=== PATIENT | female | born 1980 | race Asian ===

== ENCOUNTER 2016-10-28 20:46 | Emergency (ER) | payer BC, OTHER ==
[2016-10-28] MEDS ORDERED: HYDROmorphONE/DILAUDID 1 MG/ML SYR IM ONE (21:08)
--- NOTE | 2016-10-28 21:10 | UCPHY ---
H & P Patient Type: Established Time Seen by Provider: 10/28/16 21:08 HPI/ROS: CHIEF COMPLAINT: Neck pain HISTORY OF PRESENT ILLNESS: The patient is a 36-year-old female who is doing hand stand pushups against a wall. She fell down onto her head and bent her neck with her chin tucked to her chest. She has pain at the lower cervical spine. No radiculopathy, no tingling or numbness, no weakness. She denies headache. Low back pain. No chest pain or shortness of breath. No concussion type symptoms. REVIEW OF SYSTEMS: Constitutional: denies: chills, fever, recent illness, recent injury EENTM: denies: blurred vision, double vision, nose congestion Respiratory: denies: cough, shortness of breath Cardiac: denies: chest pain, irregular heart rate, lightheadedness, palpitations Gastrointestinal/Abdominal: denies: abdominal pain, diarrhea, nausea, vomiting, blood streaked stools Genitourinary: denies: dysuria, frequency, hematuria, pain Musculoskeletal: See HPI Skin: denies: lesions, rash, jaundice, bruising Neurological: denies: headache, numbness, paresthesia, tingling, dizziness, weakness Hematologic/Lymphatic: denies: blood clots, easy bleeding, easy bruising Immunologic/allergic: denies: HIV/AIDS, transplant EXAM: GENERAL: Well-appearing, well-nourished and in no acute distress. HEAD: Atraumatic, normocephalic. EYES: Pupils equal round and reactive to light, extraocular movements intact, sclera anicteric, conjunctiva are normal. ENT: TMs normal, nares patent, oropharynx clear without exudates. Moist mucous membranes. NECK: Pain at C6-7 spinous process, tenderness, no swelling or deformity. LUNGS: Breath sounds clear to auscultation bilaterally and equal. No wheezes rales or rhonchi. HEART: Regular rate and rhythm without murmurs, rubs or gallops. ABDOMEN: Soft, nontender, normoactive bowel sounds. No guarding, no rebound. No masses appreciated. BACK: No CVA tenderness, no spinal tenderness, step-offs or deformities EXTREMITIES: Normal range of motion, no pitting or edema. No clubbing or cyanosis. NEUROLOGICAL: Cranial nerves II through XII grossly intact. Normal speech, normal gait. 5/5 strength, normal movement in all extremities, normal sensation PSYCH: Normal mood, normal affect. SKIN: Warm, dry, normal turgor, no visible rashes or lesions. Source: Patient, Family Exam Limitations: No limitations - Medical/Surgical History Hx Asthma: Yes Hx Chronic Respiratory Disease: No Hx Diabetes: No Hx Cardiac Disease: No Hx Renal Disease: No Hx Cirrhosis: No Hx Alcoholism: No Hx HIV/AIDS: No Hx Splenectomy or Spleen Trauma: No Other PMH: APPY 2001 - Family History Significant Family History: Hypertension - Social History Smoking Status: Never smoked Alcohol Use: None Drug Use: None Constitutional: Initial Vital Signs Temperature (C) 37.2 C 10/28/16 21:10 Heart Rate 86 10/28/16 21:10 Respiratory Rate 16 10/28/16 21:10 Blood Pressure 144/86 H 10/28/16 21:10 O2 Sat (%) 95 10/28/16 21:10 O2 Delivery Mode Room Air Allergies/Adverse Reactions: No Known Allergies Allergy (Verified 10/28/16 21:15) Home Medications: Medication Instructions Recorded Bcp 07/08/14 Metformin 1000 mg 07/08/14 Metaxalone [Skelaxin 800 mg (*)] 800 mg PO TID PRN #12 tab 10/28/16 Prozac 40 mg 10/28/16 Singulair 10/28/16 Symbicort 80-4.5 Mcg Inhaler 10/28/16 Medical Decision Making - Diagnostics Imaging: Results: CT scan of the cervical spine was obtained. The results of the study are negative. The study was read by Dr. Baird. I viewed the images myself on the PACS system. ED Course/Re-evaluation: We discussed the CT results. The patient is relieved. We discussed ibuprofen, ice, massage and then warm compresses. The patient agrees with this plan. We also discussed rest. She requests a take-home pack of Vicodin. Additional verbal discharge instructions given. Differential Diagnosis: Partial list of the Differential diagnosis considered include but were not limited to; fracture, muscle strain and although unlikely based on the history and physical exam, I also considered radiculopathy, dislocation. I discussed these differential diagnoses and the plan with the patient as well as the usual and expected course. The patient understands that the diagnosis is provisional and that in medicine we are not always correct and that further workup is often warranted. Usual and customary warnings were given. All of the patient's questions were answered. The patient was instructed to return to the emergency department should the symptoms at all worsen or return, otherwise to followup with the physician as we discussed. - Data Points Medications Given: Discontinued Medications Acetaminophen/Hydrocodone Bitart (Ceres 5/325mg Prepack#6) 1 btl TAKEHOME EDNOW ONE Stop: 10/28/16 21:59 Last Admin: 10/28/16 22:05 Dose: 1 btl Hydromorphone HCl (Dilaudid) 1 mg IM EDNOW ONE Stop: 10/28/16 21:09 Last Admin: 10/28/16 21:31 Dose: 1 mg Departure - Departure Disposition: Home, Routine, Self-Care Clinical Impression: Neck muscle strain Qualifiers: Encounter type: initial encounter Qualifier Code: (S16.1XXA) Strain of muscle, fascia and tendon at neck level, initial encounter Condition: Fair Instructions: Cervical Strain (ED), Hydrocodone/Acetaminophen (By mouth), Metaxalone (By mouth) Referrals: Jazmyne Leonard [Primary Care Provider] - As per Instructions Prescriptions: Metaxalone [Skelaxin 800 mg (*)] 800 mg PO TID PRN #12 tab PRN Reason: Spasms - PQRS PQRS Measurement: Not applicable
[2016-10-28 21:25] VITALS: BP 144/86; RESP 16; TEMP 99
--- NOTE | 2016-10-28 21:50 | CT ---
CT Cervical Spine Without Contrast, 9:18 p.m. History: Trauma. Fell at the gym and hit her neck. Technique: Multislice helical CT through the cervical spine without contrast from the skull base to T 1. Soft tissue and bone evaluation is performed. Sagittal and coronal reconstructions are obtained an d reviewed. Dose reduction techniques were utilized. Findings: Cervical alignment is anatomic. No fracture or dislocation is identified. The relationship between skull base and C1 is normal. The C1-C2 articulation is normally aligned. The odontoid process is intact. Disk spaces maintain their normal height . Facet joints are normally aligned. The cervic al thoracic junction is normal. Soft tissue window evaluation does not show evidence of epidural or p revertebral hematoma. Impression: No acute posttraumatic abnormality identified. Final concordant results called to Dr. Jose Villafana at 9:50 pm. Final results are concordant with the initial interpretation. General information for patients regarding this examination can be found at [email or web address]. If you have questions or comments about this report, please contact me at [phone] (hospital) or [phone] (cell).
[2016-10-28] MEDS ORDERED: HYDROCOD/APAP 5/325 PREPACK#6 BTL TAKEHOME ONE (21:58)
[2016-10-28 22:48] VITALS: PULSE 78; O2SAT 96
== END 2016-10-28 22:05 | disposition home or self-care (01) ==
LOC: CED 20:46
DX: S16.1XXA Strain of muscle, fascia and tendon at neck level, initial encounter (principal)
CPT/HCPCS: 72125-PO; 96372-PO; 99215-PO; G0463-PO; J1170